=== PATIENT | male | born 1950 | race Caucasian/White ===

== ENCOUNTER 2017-01-13 15:30 | Emergency (ER) | payer MEDICARE, OTHER ==
[2017-01-13] MEDS ORDERED: ASPIRIN 81 MG TABLET, CHEWABLE PO ONE (16:50)
--- NOTE | 2017-01-13 16:52 | ER Document Report ---
ED Medical Screen (RME) - General Stated Complaint: CHEST PAIN/ABDOMINAL PAIN Mode of Arrival: Wheelchair Information source: Patient, Relative - SPOUSE Notes: Patient presents emergency department with complaints of headache chest pain stomach pain feeling cold and clammy sweats. Patient reports symptoms started today around 2:00. Patient was sent over by Dr. Ulloa office. TRAVEL OUTSIDE OF THE [place] IN LAST 30 DAYS: No Physical Exam - Vital signs Vitals: Temp Pulse Resp BP Pulse Ox 97.4 F 51 L 18 153/84 H 97 01/13/17 15:46 01/13/17 15:46 01/13/17 15:46 01/13/17 15:46 01/13/17 15:46 Course - Vital Signs Vital signs: Temp Pulse Resp BP Pulse Ox 97.4 F 51 L 18 153/84 H 97 01/13/17 15:46 01/13/17 15:46 01/13/17 15:46 01/13/17 15:46 01/13/17 15:46
[2017-01-13 17:41] LABS: ABSOLUTE BASOPHILS # (AUTO) 0.1 10^3/uL (0.0-0.2); ABSOLUTE LYMPHOCYTES (AUTO) 1.7 10^3/uL (0.5-4.7); ABSOLUTE MONOCYTES (AUTO) 0.3 10^3/uL (0.1-1.4); ABSOLUTE NEUT (AUTO) 8.6 10^3/uL (1.7-8.2); BASOPHILS % (AUTO) 0.5 % (0-2); EOSINOPHILS % (AUTO) 0.4 % (0-6); HEMATOCRIT 48.6 % (37.9-51.0); HEMOGLOBIN 16.2 g/dL (13.5-17.0); LYMPHOCYTES % (AUTO) 15.8 % (13-45); MEAN CORPUSCULAR HEMOGLOBIN 28.4 pg (27.0-33.4); MEAN CORPUSCULAR HGB CONC 33.3 g/dL (32.0-36.0); MEAN CORPUSCULAR VOLUME 85 fl (80-97); MONOCYTES % (AUTO) 2.8 % (3-13); RED BLOOD COUNT 5.71 10^6/uL (4.35-5.55); RED CELL DISTRIBUTION WIDTH 15.6 % (11.5-14.0); SEGMENTED NEUTROPHILS % (AUTO) 80.5 % (42-78); WHITE BLOOD COUNT 10.6 10^3/uL (4.0-10.5)
[2017-01-13 17:51] LABS: APPEARANCE,URINE SLIGHTLY-CLOUDY; BILIRUBIN,URINE NEGATIVE (NEGATIVE); GLUCOSE, URINE NEGATIVE (NEGATIVE); KETONES,URINE TRACE mg/dL (NEGATIVE); LEUKOCYTE ESTERASE,URINE NEGATIVE (NEGATIVE); NITRITE,URINE NEGATIVE (NEGATIVE); PROTEIN,URINE 30 mg/dL (NEGATIVE); URINE SPECIFIC GRAVITY 1.032; UROBILINOGEN,URINE NEGATIVE mg/dL (<2.0)
[2017-01-13 18:02] LABS: ALANINE AMINOTRANSFERASE 48 U/L (21-72); ALBUMIN 5.1 g/dL (3.5-5.0); ALKALINE PHOSPHATASE 87 U/L (38-126); ANION GAP 14 (5-19); ASPARTATE AMINO TRANSFERASE 54 U/L (17-59); BILIRUBIN,DIRECT 0.4 mg/dL (0.0-0.4); BILIRUBIN,TOTAL 0.8 mg/dL (0.2-1.3); BLOOD UREA NITROGEN 25 mg/dL (7-20); CALCIUM 9.8 mg/dL (8.4-10.2); CARBON DIOXIDE 28 mmol/L (22-30); CHLORIDE 104 mmol/L (98-107); CREATINE KINASE 196 U/L (55-170); CREATININE RESULT 1.04 mg/dL (0.52-1.25); GLUCOSE 117 mg/dL (75-110); POTASSIUM 5.1 mmol/L (3.6-5.0); SODIUM 146.1 mmol/L (137-145); TOTAL PROTEIN 8.5 g/dL (6.3-8.2)
[2017-01-13 18:14] LABS: CREATINE KINASE MB 3.44 ng/mL (<4.55)
[2017-01-13 18:15] LABS: TROPONIN I < 0.012 ng/mL
--- NOTE | 2017-01-13 19:07 | EKG REPORT ---
SEVERITY:- OTHERWISE NORMAL ECG - SINUS BRADYCARDIA : Confirmed by: Josias Meléndez MD 13-Jan-2017 19:06:30
--- NOTE | 2017-01-13 19:20 | ER Document Report ---
ED General - General Chief Complaint: Abdominal Pain >50 Stated Complaint: CHEST PAIN/ABDOMINAL PAIN Mode of Arrival: Wheelchair Notes: Patient is a 66-year-old male with a history of hypertension, hyperlipidemia and obesity who presents with a episode of abdominal pain with associated diaphoresis and pallor that has since resolved. States that at approximately 11 AM he began to develop pain over his ventral hernia and developed nausea and lots of belching. He described abdominal pain is a dull, constant aching pain. He was seen by his primary care doctor referred to the emergency room due to his pallor or diaphoresis. Denies any prior history of similar symptoms in the past. He has no history of abdominal surgeries. He did not have any vomiting although states he felt extremely nauseated. He had not passed gas until he had been lying in the stretcher here in the emergency department for several hours. Nothing was noted to improve or worsen his symptoms. TRAVEL OUTSIDE OF THE [place] IN LAST 30 DAYS: No Past Medical History - General Information source: Patient, Relative - SPOUSE - Social History Smoking Status: Unknown if Ever Smoked Frequency of alcohol use: None Drug Abuse: None Lives with: Spouse/Significant other Family History: Reviewed & Not Pertinent - Past Medical History Cardiac Medical History: Reports: Hx Hypercholesterolemia, Hx Hypertension Denies: Hx Heart Attack Pulmonary Medical History: Denies: Hx COPD Endocrine Medical History: Denies: Hx Diabetes Mellitus Type 2 Review of Systems - Review of Systems Notes: Constitutional: Negative for fever. HENT: Negative for sore throat. Eyes: Negative for visual changes. Cardiovascular: Negative for chest pain. Respiratory: Negative for shortness of breath. Gastrointestinal: Ulcerative for abdominal pain and nausea Genitourinary: Negative for dysuria. Musculoskeletal: Negative for back pain. Skin: Negative for rash. Neurological: Negative for headaches, weakness or numbness. 10 point ROS negative except as marked above and in HPI. Physical Exam - Vital signs Vitals: Temp Pulse Resp BP Pulse Ox 97.4 F 51 L 18 153/84 H 97 01/13/17 15:46 01/13/17 15:46 01/13/17 15:46 01/13/17 15:46 01/13/17 15:46 Interpretation: Bradycardic Notes: PHYSICAL EXAMINATION: GENERAL: Well-appearing, well-nourished and in no acute distress. HEAD: Atraumatic, normocephalic. EYES: Pupils equal round and reactive to light, extraocular movements intact, sclera anicteric, conjunctiva are normal. ENT: nares patent, oropharynx clear without exudates. Moist mucous membranes. NECK: Normal range of motion, supple without lymphadenopathy LUNGS: Breath sounds clear to auscultation bilaterally and equal. No wheezes rales or rhonchi. HEART: Regular rate and rhythm without murmurs ABDOMEN: Soft, nontender, normoactive bowel sounds. No guarding, no rebound. No masses appreciated. EXTREMITIES: Normal range of motion, no pitting or edema. No cyanosis. NEUROLOGICAL: No focal neurological deficits. Moves all extremities spontaneously and on command. PSYCH: Normal mood, normal affect. SKIN: Warm, Dry, normal turgor, no rashes or lesions noted. Course - Re-evaluation Re-evalutation: 01/13/17 19:20 Patient presents with an episode of abdominal pain with associated diaphoresis and nausea, and belching that his symptoms resolved. Patient does have a large ventral hernia that easily reduces on exam of the patient notes that this was quite tender when he was having these symptoms. At time of evaluation he has no focal abdominal tenderness rebound or guarding. The hernia reduces easily with lying flat and is soft on palpation. Patient did not have any chest pain, shortness of breath, or pain radiating into the arms jaw or back earlier today and does not have any other symptoms at this time. His EKG shows a right bundle branch block without ST changes and I do not have an old for comparison. Initial troponin is negative and a delta troponin will be obtained to be ensure that patient is not had a cardiac event as the etiology for symptoms although I overall suspect that he had a temporary incarceration of his ventral hernia that resolved after he lied flat for a period of time here in the emergency department and is now asymptomatic. Will obtain a KUB to ensure no active obstruction at this time. Will also by mouth challenge. If patient does well, will plan for discharge home with return precautions and close follow -up recommendations. - Vital Signs Vital signs: Temp Pulse Resp BP Pulse Ox 97.5 F 60 16 142/99 H 95 01/13/17 22:08 01/13/17 22:08 01/13/17 22:08 01/13/17 22:08 01/13/17 22:08 - Laboratory Result Diagrams: 01/13/17 17:10 04/12/17 17:10 Laboratory results interpreted by me: 01/13/17 01/13/17 01/13/17 17:10 17:10 17:25 WBC 10.6 H RBC 5.71 H RDW 15.6 H Seg Neutrophils % 80.5 H Monocytes % 2.8 L Absolute Neutrophils 8.6 H Sodium 146.1 H Potassium 5.1 H BUN 25 H Glucose 117 H Creatine Kinase 196 H Total Protein 8.5 H Albumin 5.1 H Urine Protein 30 H Urine Ketones TRACE H - Diagnostic Test Radiology reviewed: Image reviewed, Reports reviewed Radiology results interpreted by me: 01/13/17 23:32 KUB: No evidence of bowel obstruction or perforation - EKG Interpretation by Me Additional EKG results interpreted by me: 01/13/17 19:20 Sinus rhythm. Rate 68. No ST elevations or depressions. Right bundle branch block. QTC is 477. Discharge - Discharge Clinical Impression: Abdominal pain Qualifiers: Abdominal location: unspecified location Qualified Code(s): R10.9 - Unspecified abdominal pain Condition: Good Disposition: HOME, SELF-CARE Additional Instructions: Your episode today appears to be likely related to your hernia. You should follow-up with surgery to consider a repair of this hernia. Please return to emergency department if you develop chest pain, vomiting, abdominal pain, or any other symptoms that are worrisome to you. Follow-up with your primary care doctor in the next 2-3 days. Referrals: AUGUSTINE COLLIER MD [Primary Care Provider] - Follow up as needed PATO RINCON MD [ACTIVE STAFF] - Follow up as needed
[2017-01-13 22:11] VITALS: BP 142/99
== END 2017-01-13 21:45 | disposition home or self-care (01) ==
LOC: ER 15:30
DX: R10.9 Unspecified abdominal pain (principal); R07.9 Chest pain, unspecified; I10 Essential (primary) hypertension; E78.5 Hyperlipidemia, unspecified; E66.9 Obesity, unspecified
CPT/HCPCS: 93005; 99284; 36415; 82553; 82550; 83690; 85025; 80053; 81001; 84484; 71020; 74000; 93010; A9270